=== PATIENT | male | born 1990 | race Caucasian/White ===

== ENCOUNTER 2020-08-29 18:04 | Emergency (ER) | payer OTHER ==
[~2020-08-29] VITALS: Ht 177.8 cm; Wt 71.7 kg
[2020-08-29 18:11] VITALS: BP 123/84; Ht 177.8 cm; Wt 71.7 kg
[2020-08-29] MEDS ORDERED: ACETAMINOPHEN500 M5 PO (18:40)
[2020-08-29] MEDS ORDERED: KEF500 PO (18:40)
== END 2020-08-29 18:59 | disposition home or self-care (01) ==
LOC: ED 18:04
DX: L03.012 Cellulitis of left finger (principal); J45.909 Unspecified asthma, uncomplicated; Z88.6 Allergy status to analgesic agent

== ENCOUNTER 2020-09-12 17:32 | Emergency (ER) | payer OTHER ==
[~2020-09-12] VITALS: Ht 177.8 cm; Wt 70.3 kg
[~2020-09-12 17:32] MED LIST: ACETAMINOPHEN500 M5 PO; KEF500 PO
[2020-09-12 17:48] VITALS: Ht 177.8 cm; Wt 70.3 kg
[2020-09-12 18:29] LABS: PLATELET COUNT 389 x10^3mcL (152-348); RED CELL DISTRIBUTION WIDTH 12.4 % (12.1-16.2)
[2020-09-12 18:53] LABS: MONOCYTE 5 % (0-7); SEGMENTED NEUTROPHILS 54 % (37-75)
[2020-09-12 18:54] LABS: BAND NEUTROPHIL 3 % (0-10); BASOPHIL 0 % (0-2)
[2020-09-12 18:55] LABS: PLATELET MORPHOLOGY PLATELETS INCREASED; rbc morphology (normal/abnorm) NORMAL (NORMAL)
== END 2020-09-12 19:04 | disposition home or self-care (01) ==
LOC: ED 17:32
PROVIDERS: Emergency Medicine
DX: R22.31 Localized swelling, mass and lump, right upper limb (principal); J45.909 Unspecified asthma, uncomplicated; Z88.6 Allergy status to analgesic agent